=== PATIENT | female | born 1990 | race Caucasian/White ===

== ENCOUNTER 2020-11-28 15:04 | Emergency (ER) | payer OTHER, BC ==
[~2020-11-28] VITALS: Ht 165.1 cm; Wt 77.1 kg
[2020-11-28] MEDS ORDERED: SKYLA1 EACH IY (15:19)
[2020-11-28] MEDS ORDERED: CITRATE OF MAG296 ML (15:19)
[2020-11-28] MEDS ORDERED: ZYRTEC10 M3 PO (15:19)
== END 2020-11-28 17:20 | disposition home or self-care (01) ==
LOC: ED 15:04
DX: T88.1XXA Other complications following immunization, not elsewhere classified, initial encounter (principal); T50.Z95A Adverse effect of other vaccines and biological substances, initial encounter; R20.0 Anesthesia of skin; J45.909 Unspecified asthma, uncomplicated; G43.909 Migraine, unspecified, not intractable, without status migrainosus; Z88.5 Allergy status to narcotic agent; Z79.899 Other long term (current) drug therapy
CPT/HCPCS: 99283; A9270